=== PATIENT | male | born 1945 | race Caucasian/White ===

== ENCOUNTER → 2018-05-14 11:11 | Outpatient (CLI) | payer MEDICARE, SELFPAY ==
[2018-05-14 11:53] LABS: Add Manual Diff / Slide Review NO; Basophils Absolute Auto 0 /uL (0-100); Eosinophils Absolute Auto 100 /uL (0-450); Eosinophils Percent Auto 2.4 % (2-4); Hematocrit 42.2 % (41-53); Hemoglobin 14.2 g/dL (13.5-17.5); Lymphocytes Absolute Auto 2000 /uL (1100-4500); Lymphocytes Percent Auto 40.5 % (25-40); Mean Corpuscular HGB Conc 33.6 % (30-36); Mean Corpuscular Volume 95.5 fL (80-100); Monocytes Absolute Auto 400 /uL (0-900); Monocytes Percent Auto 8.6 % (3-14); Neutrophils Absolute Auto 2300 /uL (1500-7000); Neutrophils Percent Auto 47.5 % (50-75); Platelet Count 226 X10^3/uL (150-400); Red Blood Cell Count 4.43 X10^6/uL (4.5-5.9); Red Cell Distribution Width 14.2 % (11.6-14.8); White Blood Cell Count 4.8 X10^3/uL (4.5-11.0)
[2018-05-14 12:16] LABS: Alanine Aminotransferase 38 IU/L (21-72); Albumin 4.1 g/dL (3.5-5.0); Albumin Globulin Ratio 1.5 (1.0-2.8); Alkaline Phosphatase 59 U/L (38-126); Aspartate Aminotransferase 46 IU/L (17-59); BUN Creatinine Ratio 14.4 (6-22); Bilirubin Total 1.1 mg/dL (0.2-1.3); Blood Urea Nitrogen 13 mg/dL (9-20); Calcium 9.4 mg/dL (8.4-10.2); Carbon Dioxide 31 mmol/L (22-32); Chloride 101 mmol/L (98-107); Cholesterol 202 mg/dL (140-199); Estimated Glomerular Filt Rate > 60.0 mL/min (>60); Globulin 2.7 g/dL (1.7-4.1); Glucose 121 mg/dL (80-110); HDL Cholesterol 103 mg/dL (40-60); HEMOLYSIS < 15 (0-50); LDL Cholesterol Calculated 72 mg/dL (<100); Potassium 4.4 mmol/L (3.4-5.1); Sodium 139 mmol/L (137-145); Total Protein 6.8 g/dL (6.3-8.2); Triglycerides 137 mg/dL (35-150)
== END ==
PROVIDERS: Family Provider Family Medicine; PCP Family Medicine; Visit Provider Family Medicine
DX: I10 Essential (primary) hypertension (principal)
CPT/HCPCS: 36415; 80053; 80061; 85025

== ENCOUNTER 2018-06-17 07:00 | Day surgery (SDC) | payer MEDICARE, SELFPAY ==
[2018-06-17 07:21] VITALS: BP 133/77; PULSE 49; RESP 16; TEMP 36.2; O2SAT 100; BMI 27.8
[2018-06-17] MEDS: PROPARACAINE 0.5% OPHTH SOL 2 DROPS EYE-OP (07:32)
[2018-06-17] MEDS: CATARACT EYE COMPOUND (10 DROPS/SYRINGE) 3 DROPS EYE-OP (07:38)
--- NOTE | 2018-06-17 08:12 | PM.PREOP ---
Pre-operative Note Interval Note History & Physical reviewed/Exam performed by Physician: No Changes to H&P: No
--- NOTE | 2018-06-17 08:12 | PM.OP.1 ---
Operative Date/Time/Diagnoses Pre-op diagnosis: Nuclear Cataract Left eye Post-op diagnosis: same Procedure & Clinicians Surgeon: Daljit Cuevas Anesthesia Type: MAC +/- and Sedation Operative Notes Procedure in detail: Patient brought to the operating suite. Tetracaine drops placed in the left eye. Marking instrument was used to daksha the vertical and horizontal meridians. Patient was prepped and draped in sterile manner. Wire lid speculum was placed in the eye. Betadine drops were placed on the eye. This was irrigated. Lidocaine jelly was placed on the eye. A paracentesis port was created with a side-port blade. 0.1 mL 1% preservative free lidocaine was injected into the anterior chamber. The anterior chamber was deepened with viscoelastic. 2.6 mm keratome was used to create a temporal clear corneal incision. Cystotome and Utrata forceps were used to create continuous tear capsulorrhexis. Balanced salt solution was used to hydro dissect the nucleus. The phacoemulsification handpiece was inserted and the nucleus was removed using the stop and chop technique. The irrigation aspiration handpiece was inserted and the remaining cortex was removed. Anterior chamber was deepened with viscoelastic. An Giron [id number] intraocular lens with a power of 17.5 was injected into the capsular bag. Irrigation aspiration handpiece was inserted and the remaining viscoelastic was removed. The lens was rotated to the 180 degree meridian. Incision was hydrated with balanced salt solution and found to be leak free with pressure with Weck-Consuelo sponges. 0.1 mL Vigamox injected anterior chamber. 0.3 mL Kenalog 10 mg was injected subconjunctivally. Lid speculum was removed. The patient left the operating room in excellent condition. Complications: none Condition: stable Disposition: same day surgery
[2018-06-17] MEDS: PHENYLEPHRINE/LIDOCAINE VIAL (OR) 0.2 ML EYE-OP (08:24)
[2018-06-17] MEDS: CHONDROIDTIN/SOD HYALURONATE 1.05 ML SYRINGE INTRAOCULA (08:25)
[2018-06-17] MEDS: MOXIFLOXACIN OPHTH DROPS 3 ML BOTTLE 2 DROPS INJ (08:25)
[2018-06-17] MEDS: TRIAMCINOLONE 50 MG/5 ML VIAL INJ (08:25)
[2018-06-17] MEDS: LIDOCAINE JELLY 2% 5 ML 1 APPLIC TOP (08:26)
[2018-06-17] MEDS: TETRACAINE 0.5% OPHTH DROPS 4 ML 2 DROPS EYE-OP (08:26)
[2018-06-17] MEDS: BALANCED SALT IRRIG SOLN NO.2 500 ML, EPINEPHrine 1 MG IRR (08:26)
[2018-06-17 08:35] VITALS: BP 105/76; PULSE 64; RESP 12; TEMP 36.2; O2SAT 98
== END 2018-06-17 09:00 | disposition home or self-care (01) ==
PROVIDERS: Family Provider Family Medicine; PCP Family Medicine; Visit Provider Ophthalmology
DX: H25.12 Age-related nuclear cataract, left eye (principal); I10 Essential (primary) hypertension
CPT/HCPCS: J0171; J2250; J3010; J3301; V2787

== ENCOUNTER 2018-07-01 06:28 | Day surgery (SDC) | payer MEDICARE, SELFPAY ==
[2018-07-01] MEDS: PROPARACAINE 0.5% OPHTH SOL 2 DROPS EYE-OP (07:11)
[2018-07-01] MEDS: CATARACT EYE COMPOUND (10 DROPS/SYRINGE) 3 DROPS EYE-OP ×3 (07:13→07:27)
[2018-07-01 07:17] VITALS: BP 137/74; PULSE 57; RESP 16; TEMP 36.4; O2SAT 97
[2018-07-01 07:22] VITALS: BMI 26.7
--- NOTE | 2018-07-01 07:44 | PM.PREOP ---
Pre-operative Note Interval Note History & Physical reviewed/Exam performed by Physician: No Changes to H&P: No
--- NOTE | 2018-07-01 07:45 | PM.OP.1 ---
Operative Date/Time/Diagnoses Pre-op diagnosis: Nuclear cataract right eye Procedure & Clinicians Procedure: Cataract Surgery Same procedure as scheduled: Yes Surgeon: Daljit Cuevas Anesthesia Type: MAC +/- and Sedation Operative Notes Procedure in detail: Patient brought to the operating suite. Tetracaine drops placed in the right eye. Patient was prepped and draped in sterile manner. Wire lid speculum was placed in the eye. Betadine drops were placed on the eye. This was irrigated. Lidocaine jelly was placed on the eye. A paracentesis port was created with a side-port blade. 0.1 mL 1% preservative free lidocaine was injected into the anterior chamber. The anterior chamber was deepened with viscoelastic. 2.6 mm keratome was used to create a temporal clear corneal incision. Cystotome and Utrata forceps were used to create continuous tear capsulorrhexis. Balanced salt solution was used to hydro dissect the nucleus. The phacoemulsification handpiece was inserted and the nucleus was removed using the stop and chop technique. The irrigation aspiration handpiece was inserted and the remaining cortex was removed. Anterior chamber was deepened with viscoelastic. An Giron ZCB00 intraocular lens with a power of 20.0 was injected into the capsular bag. Irrigation aspiration handpiece was inserted and the remaining viscoelastic was removed. Incision was hydrated with balanced salt solution and found to be leak free with pressure with Weck-Consuelo sponges. 0.1 mL Vigamox injected anterior chamber. 0.3 mL Kenalog 10 mg was injected subconjunctivally. Lid speculum was removed. The patient left the operating room in excellent condition. Complications: none Condition: stable Disposition: same day surgery
--- NOTE | 2018-07-01 07:50 | SUR.OPER ---
Supine on eye stretcher, head on extension cradle secured with tape. Arms tucked at sides with blanket. Pillow under knees.
[2018-07-01] MEDS: CHONDROIDTIN/SOD HYALURONATE 1.05 ML SYRINGE INTRAOCULA (07:56)
[2018-07-01] MEDS: LIDOCAINE JELLY 2% 5 ML 1 APPLIC TOP (07:56)
[2018-07-01] MEDS: TETRACAINE 0.5% OPHTH DROPS 4 ML 2 DROPS EYE-OP (07:57)
[2018-07-01] MEDS: PHENYLEPHRINE/LIDOCAINE VIAL (OR) 0.2 ML EYE-OP (07:57)
[2018-07-01] MEDS: MOXIFLOXACIN OPHTH DROPS 3 ML BOTTLE 2 DROPS INJ (07:57)
[2018-07-01] MEDS: TRIAMCINOLONE 50 MG/5 ML VIAL INJ (07:58)
[2018-07-01] MEDS: BALANCED SALT IRRIG SOLN NO.2 500 ML, EPINEPHrine 1 MG IRR (07:58)
[2018-07-01 08:27] VITALS: BP 124/75; PULSE 53; RESP 16; TEMP 36.3; O2SAT 96
== END 2018-07-01 08:27 ==
LOC: OR 06:29
PROVIDERS: Family Provider Family Medicine; PCP Family Medicine; Visit Provider Ophthalmology
DX: H25.11 Age-related nuclear cataract, right eye (principal); I10 Essential (primary) hypertension
CPT/HCPCS: J0171; J2250; J3010; J3301

== ENCOUNTER 2019-05-12 16:45 | Outpatient (RCR) | payer MEDICARE, SELFPAY ==
--- NOTE | 2019-04-22 10:27 | PT-OP ANOTE ---
Appointment cancelled in setting of inclement weather
--- NOTE | 2019-04-27 16:07 | PT.OIE ---
Current Diagnoses Dizziness and giddiness (04/27/19) Past Medical History (Last Reviewed 12/12/17 @ 12:01 by Joe Holland MD) Benign prostatic hyperplasia with nocturia (06/11/17) BPH (benign prostatic hyperplasia) (Chronic) Chickenpox (Resolved) Cyst (Resolved 2012) Elevated PSA (Chronic) Erectile dysfunction (05/05/15) Essential hypertension (05/05/15) Hyperlipemia (Chronic) Hypertension (Chronic) Measles (Resolved) Mixed hyperlipidemia (05/05/15) Mumps (Resolved) Onychomycosis (05/21/16) Pneumonia (Resolved ~1979) Right shoulder pain (05/21/16) Past Surgical History (Last Reviewed 12/12/17 @ 12:01 by Joe Holland MD) Hx of skin graft (Resolved 1994) Hx of surgical procedure (Resolved 08/2016) Visit Care Team Role Provider Type Joe Holland MD Primary Care Provider Non-Staff Specialty: Family Practice Address: [address] [place] [address], [facility] [address], [place], [address] Email: Marcelo Jerry MD Attending Provider Physician Specialty: Ear, Nose, Throat Address: [address] [place] [address], [id number] Email: Physical Therapy Initial Evaluation PT-OP-A Visit Information Start: 04/22/19 07:21 Freq: Status: Active Protocol: Document 04/27/19 10:32 MB (Rec: 04/27/19 11:14 MB [id number]) Out-Patient Physical Therapy Visit Information Visit Information Visit Type Initial Evaluation Visit Note Medicare, unlimited Visit Start Time 10:32 Visit Stop Time 11:12 Total Visit Minutes 40 Visit Number 1/unlimited PT-OP-B Current Condition Start: 04/22/19 07:21 Freq: Status: Active Protocol: Document 04/27/19 10:32 MB (Rec: 04/27/19 11:14 MB [id number]) Current Condition History of Current Condition Onset Date 5 years History of Current Condition Pt reports balance issues for 5 years. He relies heavily on his vision. He had trouble with the snow because everything was white and he had trouble referencing where he was in space. He has trouble walking in the pathway in the garden. He had a fall in [place] 2 years ago when walking on [address]. He had a fall in [place] about a year ago when outside [employer]. He hit his left judaism area. He fell in [place] and he injured his left shoulder. He had PT and it is better. He goes for walks and uses walking sticks. He does not use a cane. He has 2-3 steps to enter the house and he can grab onto the side of the house. The house is one level. He does take care of a relative who lives on the second floor and he can use a rail. He is not having trouble driving. He can get dizzy with getting up but no dizziness rolling over in the bed. Pt denies: sinus issues, allergies, tinnitus, hearing changes. He has occ neck pain, worse in the cold weather. He denies visual changes, whiplash, trouble swallowing, recent chiropractor work on neck, performance of sit-ups, TMJ trouble, postures such as resting head on hand. He is unsure about B12 issues. His feet are sore sometimes. No real pain. Pt has no history of DM or neuropathjy. He takes BP medications, a statin. Treatment Goals Patient/Caregiver Goals To avoid falling. PT-OP-C Subjective Start: 04/22/19 07:21 Freq: Status: Active Protocol: Document 04/27/19 10:32 MB (Rec: 04/27/19 16:07 [id number]) OP-PT Subjective Patient Comments Patient Comments See history of current condition Patient Reported Progress Same Patient Questionnaires ABC- Activity Specific Balance Confidence Scale ABC Functional Impairment 1 to <20% Impaired (Score 81- 99) Dizziness Handicap Inventory DHI Functional Impairment 20 to 39% Impaired (Score 20- 39) PT-OP-D Balance Start: 04/22/19 07:21 Freq: Status: Active Protocol: Document 04/27/19 10:32 MB (Rec: 04/27/19 16:07 MB [id number]) OP-PT Balance Assessment Sitting Balance Static Sitting Balance Ability Normal Dynamic Sitting Balance Ability Normal Standing Balance Static Standing Balance Ability Normal Dynamic Standing Balance Ability Good Roe Fall Scale Copyright Permission PT-OP-M Strength Start: 04/22/19 07:21 Freq: Status: Active Protocol: Document 04/27/19 10:32 MB (Rec: 04/27/19 16:07 MB [id number]) Hip Strength Hip Manual Muscle Testing Left Flexion (L2) 4 Good Abduction 4 Good Adduction 4 Good Right Flexion (L2) 4 Good Abduction 4 Good Adduction 4 Good Knee Strength Knee Manual Muscle Testing Left Flexion (S2) 5 Normal Extension (L3) 5 Normal Right Flexion (S2) 5 Normal Extension (L3) 5 Normal Ankle/Foot Strength Ankle and Foot Manual Muscle Testing Left Dorsiflexion (L4) 5 Normal Comments Great toe extension 5/5 Right Dorsiflexion (L4) 5 Normal Comments Great toe extension 5/5 PT-OP-O Vestibular Start: 04/22/19 07:21 Freq: Status: Active Protocol: Document 04/27/19 10:32 MB (Rec: 04/27/19 16:07 MB [id number]) Vestibular Assessment Visual Testing Smooth Pursuits Horizontal Normal Smooth Pursuits Vertical Normal Gaze Evoked Nystagmus With Fixation Negative Gaze Evoked Nystagmus Without Fixation Negative PT-OP-T Assessment and Plan Start: 04/22/19 07:21 Freq: Status: Active Protocol: Document 04/27/19 10:32 MB (Rec: 04/27/19 16:07 MB [id number]) Physical Therapy Assessment Rehab Potential Rehabilitation Potential Good Evaluation Complexity Number of Personal Factors/Comorbidities 1-2 Number of Body Systems Impaired 1-2 Clinical Presentation at Evaluation Stable Impairments Impairments Balance,Gait,Posture,Strength, Vestibular Other Impairments Pt has trouble with turning activities including pivot turn and turning head to the left with gait. He has personal factors of advanced age, pt taking statin and pt leaving for vacation during PT course. Goals 5 Improvement Engineer Goal (LTG) Pt will perform progressive HEP with I including balance and strengthening exercises to decrease fall risk by 06/26/19 . LTG Duration 8 weeks 4 Mcfp Goal (LTG) Pt will deny fall for two months by 06/26/19. LTG Duration 8 weeks 3 Improvement Engineer Goal (LTG) Pt will present with B hip flexion and abduction MMT to 5 /5 to improve functional strength with sit to stands by 06/26/19. LTG Duration 8 weeks 2 Impairment FGA score Mcfp Goal (LTG) Pt will present with FGA score to at least 26/30 to decrease fall risk by 06/26/19. LTG Duration 8 weeks 1 Improvement Engineer Goal (LTG) Pt will perform 15 reps sit to stand without UE support in 30 sec to improve functional mobility by 06/26/2019. LTG Duration 8 weeks Assessment Summary Assessment Pt is a 74 y/o male presenting with history of falls and reports of imbalance and goal decreasing fall risk. He denies dizziness with rolling in the bed. His BP does not drop with orthostatic testing today and is 115/70 in supine, 130/75 in standing and increases to 130/78 after standing 1 minute. He presents with B hip flexor and abductor weakness, loss of balance and reports of fear when his vision is blocked, LOB with head turns, gait with narrow ARNIE and pivot turn this date. He will benefit from PT to improve LE strength , balance and gait to decrease fall risk. Pt may leave for vacation during PT course and this may delay meeting goals. Physical Therapy Plan Frequency and Duration Frequency of Treatment 2x/Week Duration of Treatment 8 weeks Plan of Care Start Date 04/27/19 Plan of Care End Date 06/26/19 Therapeutic Interventions Therapeutic Interventions Balance Training,Canalithic Repositioning,Gait Training, Home Exercise Program,Manual Therapy,Neuromuscular Re- education,Orthotic/Prosthetic Management,Patient/Caregiver Education,Self-Care/Home Management,Therapeutic Activities,Therapeutic Exercises,Vestibular Rehabilitation Next Visit Focus/Plan Next Note Type Treatment Note Next Visit Plan Initiate balance exercises and consider initiating VOR exercises
--- NOTE | 2019-04-27 16:07 | PT.OPPOC ---
Physical, Occupational & Speech Therapy At [facility] Current Diagnoses Dizziness and giddiness (04/27/19) Visit Care Team Role Provider Type Joe Holland MD Primary Care Provider Non-Staff Specialty: Family Practice Address: [address], [address], [place], [address] Email: Marcelo Jerry MD Attending Provider Physician Specialty: Ear, Nose, Throat Address: [address] [place] [address], [id number] Email: [email or web address] Plan Of Care PT-OP-T Assessment and Plan Start: 04/22/19 07:21 Freq: Status: Active Protocol: Document 04/27/19 10:32 MB (Rec: 04/27/19 16:07 MB [id number]) Physical Therapy Assessment Rehab Potential Rehabilitation Potential Good Evaluation Complexity Number of Personal Factors/Comorbidities 1-2 Number of Body Systems Impaired 1-2 Clinical Presentation at Evaluation Stable Impairments Impairments Balance,Gait,Posture,Strength, Vestibular Other Impairments Pt has trouble with turning activities including pivot turn and turning head to the left with gait. He has personal factors of advanced age, pt taking statin and pt leaving for vacation during PT course. Goals 5 Alf Goal (LTG) Pt will perform progressive HEP with I including balance and strengthening exercises to decrease fall risk by 06/26/19 . LTG Duration 8 weeks 4 Knock Out Hand Goal (LTG) Pt will deny fall for two months by 06/26/19. LTG Duration 8 weeks 3 Alf Goal (LTG) Pt will present with B hip flexion and abduction MMT to 5 /5 to improve functional strength with sit to stands by 06/26/19. LTG Duration 8 weeks 2 Impairment FGA score 20/30 Alf Goal (LTG) Pt will present with FGA score to at least 26/30 to decrease fall risk by 06/26/19. LTG Duration 8 weeks 1 Alf Goal (LTG) Pt will perform 15 reps sit to stand without UE support in 30 sec to improve functional mobility by 06/26/2019. LTG Duration 8 weeks Assessment Summary Assessment Pt is a 74 y/o male presenting with history of falls and reports of imbalance and goal decreasing fall risk. He denies dizziness with rolling in the bed. His BP does not drop with orthostatic testing today and is 115/70 in supine, 130/75 in standing and increases to 130/78 after standing 1 minute. He presents with B hip flexor and abductor weakness, loss of balance and reports of fear when his vision is blocked, LOB with head turns, gait with narrow ARNIE and pivot turn this date. He will benefit from PT to improve LE strength , balance and gait to decrease fall risk. Pt may leave for vacation during PT course and this may delay meeting goals. Physical Therapy Plan Frequency and Duration Frequency of Treatment 2x/Week Duration of Treatment 8 weeks Plan of Care Start Date 04/27/19 Plan of Care End Date 06/26/19 Therapeutic Interventions Therapeutic Interventions Balance Training,Canalithic Repositioning,Gait Training, Home Exercise Program,Manual Therapy,Neuromuscular Re- education,Orthotic/Prosthetic Management,Patient/Caregiver Education,Self-Care/Home Management,Therapeutic Activities,Therapeutic Exercises,Vestibular Rehabilitation Next Visit Focus/Plan Next Note Type Treatment Note Next Visit Plan Initiate balance exercises and consider initiating VOR exercises Plan of Care Dates Plan of Care Start Date 04/27/19 Plan of Care End Date 06/26/19 Electronically Signed by: Bela Bowie, PT 04/27/19 [id number] Please Sign and Return: I have reviewed this Plan of Care and certify that the skilled therapy services above are required to meet the patient?s needs. Physician Signature Date Printed Name and Credentials Clinical Instructor Signature Printed Name and Credentials
--- NOTE | 2019-04-29 15:29 | PT.OTN ---
Current Diagnoses Dizziness and giddiness (04/29/19) Physical Therapy Treatment Note PT-OP-A Visit Information Start: 04/22/19 07:21 Freq: Status: Active Protocol: Document 04/29/19 14:28 MB (Rec: 04/29/19 15:26 MB [id number]) Out-Patient Physical Therapy Visit Information Visit Information Visit Type Treatment Note Visit Note Medicare, unlimited Visit Start Time 14:28 Visit Stop Time 15:08 Total Visit Minutes 40 Visit Number 2/unlimited PT-OP-B Current Condition Start: 04/22/19 07:21 Freq: Status: Active Protocol: Document 04/27/19 10:32 MB (Rec: 04/27/19 11:14 MB [id number]) Current Condition History of Current Condition Onset Date 5 years History of Current Condition Pt reports balance issues for 5 years. He relies heavily on his vision. He had trouble with the snow because everything was white and he had trouble referencing where he was in space. He has trouble walking in the pathway in the garden. He had a fall in [place] 2 years ago when walking on [address]. He had a fall in [place] about a year ago when outside [employer]. He hit his left anabaptist area. He fell in [place] and he injured his left shoulder. He had PT and it is better. He goes for walks and uses walking sticks. He does not use a cane. He has 2-3 steps to enter the house and he can grab onto the side of the house. The house is one level. He does take care of a relative who lives on the second floor and he can use a rail. He is not having trouble driving. He can get dizzy with getting up but no dizziness rolling over in the bed. Pt denies: sinus issues, allergies, tinnitus, hearing changes. He has occ neck pain, worse in the cold weather. He denies visual changes, whiplash, trouble swallowing, recent chiropractor work on neck, performance of sit-ups, TMJ trouble, postures such as resting head on hand. He is unsure about B12 issues. His feet are sore sometimes. No real pain. Pt has no history of DM or neuropathjy. He takes BP medications, a statin. Treatment Goals Patient/Caregiver Goals To avoid falling. PT-OP-C Subjective Start: 04/22/19 07:21 Freq: Status: Active Protocol: Document 04/29/19 14:28 MB (Rec: 04/29/19 15:28 MB [id number]) OP-PT Subjective Patient Comments Patient Comments Pt is ready for exercises. PT-OP-D Balance Start: 04/22/19 07:21 Freq: Status: Active Protocol: Document 04/27/19 10:32 MB (Rec: 04/27/19 16:07 MB [id number]) OP-PT Balance Assessment Sitting Balance Static Sitting Balance Ability Normal Dynamic Sitting Balance Ability Normal Standing Balance Static Standing Balance Ability Normal Dynamic Standing Balance Ability Good Roe Fall Scale Copyright Permission PT-OP-M Strength Start: 04/22/19 07:21 Freq: Status: Active Protocol: Document 04/27/19 10:32 MB (Rec: 04/27/19 16:07 MB [id number]) Hip Strength Hip Manual Muscle Testing Left Flexion (L2) 4 Good Abduction 4 Good Adduction 4 Good Right Flexion (L2) 4 Good Abduction 4 Good Adduction 4 Good Knee Strength Knee Manual Muscle Testing Left Flexion (S2) 5 Normal Extension (L3) 5 Normal Right Flexion (S2) 5 Normal Extension (L3) 5 Normal Ankle/Foot Strength Ankle and Foot Manual Muscle Testing Left Dorsiflexion (L4) 5 Normal Comments Great toe extension 5/5 Right Dorsiflexion (L4) 5 Normal Comments Great toe extension 5/5 PT-OP-O Vestibular Start: 04/22/19 07:21 Freq: Status: Active Protocol: Document 04/27/19 10:32 MB (Rec: 04/27/19 16:07 MB [id number]) Vestibular Assessment Visual Testing Smooth Pursuits Horizontal Normal Smooth Pursuits Vertical Normal Gaze Evoked Nystagmus With Fixation Negative Gaze Evoked Nystagmus Without Fixation Negative PT-OP-Q Treatments Start: 04/22/19 07:21 Freq: Status: Active Protocol: Document 04/29/19 14:28 MB (Rec: 04/29/19 15:26 MB [id number]) Therapeutic Exercises Sitting Exercises Sit to stands without UE support Comments 12 reps in 30 sec today, added to HEP Standing Exercises Romberg with EO and EC in corner Comments 30 sec and pt with LOB with EC and ed to open eyes before LOB Thoracic rotation with arms sway and cervical rotation with feet shoulder width apart Reps/Minutes 5 reps Comments Pt performs and added to HEP DVA with horizontal and vertical head turns Comments Pt states that it is not hard and so not added to HEP Neuro Re-Education Treatment Vestibular Rehabilitation DVA testing in sitting and standing Comments DVA testing and pt does not have change in line reading with horizontal or vertical head turns but he does resist PT moving head. PT-OP-T Assessment and Plan Start: 04/22/19 07:21 Freq: Status: Active Protocol: Document 04/29/19 14:28 MB (Rec: 04/29/19 15:26 MB [id number]) Physical Therapy Assessment Rehab Potential Rehabilitation Potential Good Evaluation Complexity Number of Personal Factors/Comorbidities 1-2 Number of Body Systems Impaired 1-2 Clinical Presentation at Evaluation Stable Impairments Impairments Balance,Gait,Posture,Strength, Vestibular Other Impairments Pt has trouble with turning activities including pivot turn and turning head to the left with gait. He has personal factors of advanced age, pt taking statin and pt leaving for vacation during PT course. Goals 5 Group Home Goal (LTG) Pt will perform progressive HEP with I including balance and strengthening exercises to decrease fall risk by 06/26/19 . LTG Duration 8 weeks 4 Group Home Goal (LTG) Pt will deny fall for two months by 06/26/19. LTG Duration 8 weeks 3 Box Stacker Goal (LTG) Pt will present with B hip flexion and abduction MMT to 5 /5 to improve functional strength with sit to stands by 06/26/19. LTG Duration 8 weeks 2 Impairment FGA score 20/30 Group Home Goal (LTG) Pt will present with FGA score to at least 26/30 to decrease fall risk by 06/26/19. LTG Duration 8 weeks 1 Group Home Goal (LTG) Pt will perform 15 reps sit to stand without UE support in 30 sec to improve functional mobility by 06/26/2019. LTG Duration 8 weeks Assessment Summary Assessment Initiated HEP this date today. Con't progression. Physical Therapy Plan Frequency and Duration Frequency of Treatment 2x/Week Duration of Treatment 8 weeks Plan of Care Start Date 04/27/19 Plan of Care End Date 06/26/19 Therapeutic Interventions Therapeutic Interventions Balance Training,Canalithic Repositioning,Gait Training, Home Exercise Program,Manual Therapy,Neuromuscular Re- education,Orthotic/Prosthetic Management,Patient/Caregiver Education,Self-Care/Home Management,Therapeutic Activities,Therapeutic Exercises,Vestibular Rehabilitation Next Visit Focus/Plan Next Note Type Treatment Note Next Visit Plan Progress hip abduction and extension strengthening and balance exercises
--- NOTE | 2019-05-04 15:49 | PT.OTN ---
Current Diagnoses Dizziness and giddiness (05/04/19) Physical Therapy Treatment Note PT-OP-A Visit Information Start: 04/22/19 07:21 Freq: Status: Active Protocol: Document 05/04/19 13:16 SP (Rec: 05/04/19 15:47 SP [id number]) Out-Patient Physical Therapy Visit Information Visit Information Visit Type Treatment Note Visit Note Medicare, unlimited 13 min late for appointment Visit Start Time 13:13 Visit Stop Time 13:50 Total Visit Minutes 37 Visit Number 3/unlimited Number of APPLICATION SECURITY SPECIALIST Visits 1 PT-OP-B Current Condition Start: 04/22/19 07:21 Freq: Status: Active Protocol: Document 04/27/19 10:32 MB (Rec: 04/27/19 11:14 MB [id number]) Current Condition History of Current Condition Onset Date 5 years History of Current Condition Pt reports balance issues for 5 years. He relies heavily on his vision. He had trouble with the snow because everything was white and he had trouble referencing where he was in space. He has trouble walking in the pathway in the garden. He had a fall in [place] 2 years ago when walking on [address]. He had a fall in [place] about a year ago when outside [employer]. He hit his left [employer] area. He fell in [place] and he injured his left shoulder. He had PT and it is better. He goes for walks and uses walking sticks. He does not use a cane. He has 2-3 steps to enter the house and he can grab onto the side of the house. The house is one level. He does take care of a relative who lives on the second floor and he can use a rail. He is not having trouble driving. He can get dizzy with getting up but no dizziness rolling over in the bed. Pt denies: sinus issues, allergies, tinnitus, hearing changes. He has occ neck pain, worse in the cold weather. He denies visual changes, whiplash, trouble swallowing, recent chiropractor work on neck, performance of sit-ups, TMJ trouble, postures such as resting head on hand. He is unsure about B12 issues. His feet are sore sometimes. No real pain. Pt has no history of DM or neuropathjy. He takes BP medications, a statin. Treatment Goals Patient/Caregiver Goals To avoid falling. PT-OP-C Subjective Start: 04/22/19 07:21 Freq: Status: Active Protocol: Document 05/04/19 13:13 SP (Rec: 05/04/19 15:49 SP [id number]) OP-PT Subjective Patient Comments Patient Comments Pt reported compliant with HEP , challenged by standign balance exercise but is ableto do. Denied dizziness pre PT and during ther ex. PT-OP-D Balance Start: 04/22/19 07:21 Freq: Status: Active Protocol: Document 04/27/19 10:32 MB (Rec: 04/27/19 16:07 MB [id number]) OP-PT Balance Assessment Sitting Balance Static Sitting Balance Ability Normal Dynamic Sitting Balance Ability Normal Standing Balance Static Standing Balance Ability Normal Dynamic Standing Balance Ability Good Roe Fall Scale Copyright Permission PT-OP-M Strength Start: 04/22/19 07:21 Freq: Status: Active Protocol: Document 04/27/19 10:32 MB (Rec: 04/27/19 16:07 MB [id number]) Hip Strength Hip Manual Muscle Testing Left Flexion (L2) 4 Good Abduction 4 Good Adduction 4 Good Right Flexion (L2) 4 Good Abduction 4 Good Adduction 4 Good Knee Strength Knee Manual Muscle Testing Left Flexion (S2) 5 Normal Extension (L3) 5 Normal Right Flexion (S2) 5 Normal Extension (L3) 5 Normal Ankle/Foot Strength Ankle and Foot Manual Muscle Testing Left Dorsiflexion (L4) 5 Normal Comments Great toe extension 5/5 Right Dorsiflexion (L4) 5 Normal Comments Great toe extension 5/5 PT-OP-O Vestibular Start: 04/22/19 07:21 Freq: Status: Active Protocol: Document 04/27/19 10:32 MB (Rec: 04/27/19 16:07 MB [id number]) Vestibular Assessment Visual Testing Smooth Pursuits Horizontal Normal Smooth Pursuits Vertical Normal Gaze Evoked Nystagmus With Fixation Negative Gaze Evoked Nystagmus Without Fixation Negative PT-OP-Q Treatments Start: 04/22/19 07:21 Freq: Status: Active Protocol: Document 05/04/19 13:16 SP (Rec: 05/04/19 15:47 SP [id number]) Therapeutic Exercises Supine Exercises post pelvic tilt Reps/Minutes 2x5 Comments cued awareness of PPT and breathing Trans ab heel slide Reps/Minutes x5 B trans ab Reps/Minutes 10 x10 Sitting Exercises pelvic tilits Reps/Minutes x10 Comments cued stationary upper body Sit to stands without UE support Reps/Minutes 12 in 30 sec x 2 Comments with arms crossed for weightshift Standing Exercises Tandem Equipment Used chair Reps/Minutes 15 x2 each foot position Comments cued wt btwn B feet, glut activation, chest lift Romberg with EO and EC in corner Comments 30 sec and pt with LOB with EC and ed to open eyes before LOB Thoracic rotation with arms sway and cervical rotation with feet shoulder width apart Reps/Minutes 10 reps Comments Pt performs and added to HEP DVA with horizontal and vertical head turns Standing Exercise Name Performed Reps/Minutes 30x2 Comments Pt states that it is not hard and so not added to HEP PT-OP-T Assessment and Plan Start: 04/22/19 07:21 Freq: Status: Active Protocol: Document 05/04/19 13:16 SP (Rec: 05/04/19 15:47 SP [id number]) Physical Therapy Assessment Goals 5 Sheeter Machine Operator Goal (LTG) Pt will perform progressive HEP with I including balance and strengthening exercises to decrease fall risk by 06/26/19 . LTG Duration 8 weeks 4 Sheeter Machine Operator Goal (LTG) Pt will deny fall for two months by 06/26/19. LTG Duration 8 weeks 3 Assisted Goal (LTG) Pt will present with B hip flexion and abduction MMT to 5 /5 to improve functional strength with sit to stands by 06/26/19. LTG Duration 8 weeks 2 Impairment FGA score 20/30 Sheeter Machine Operator Goal (LTG) Pt will present with FGA score to at least 26/30 to decrease fall risk by 06/26/19. LTG Duration 8 weeks 1 Sheeter Machine Operator Goal (LTG) Pt will perform 15 reps sit to stand without UE support in 30 sec to improve functional mobility by 06/26/2019. LTG Duration 8 weeks Assessment Summary Assessment Tx focused on HEP review, still feels challenged tandem today but able to perform 1 hand contact chair post cues ofweight distribution BLE ARNIE over COG, glut activation and upright posture continue work on this in PT, not safe for home. Added Trans ab training and pelvc tilts ROM with requirement cuing for trans ab engagement, weak PPT core facilitation without glut and heel press recruitment, improved post verbal and lower posterior ribcage contact cues in supine and sitting, added as HEP. Physical Therapy Plan Frequency and Duration Frequency of Treatment 2x/Week Duration of Treatment 8 weeks Plan of Care Start Date 04/27/19 Plan of Care End Date 06/26/19 Therapeutic Interventions Therapeutic Interventions Balance Training,Canalithic Repositioning,Gait Training, Home Exercise Program,Manual Therapy,Neuromuscular Re- education,Orthotic/Prosthetic Management,Patient/Caregiver Education,Self-Care/Home Management,Therapeutic Activities,Therapeutic Exercises,Vestibular Rehabilitation Next Visit Focus/Plan Next Note Type Treatment Note Next Visit Plan Assess added Tras ab with heel slide, and pelvic tilts to work toward improved balance. Progress hip abduction and extension strengthening and balance exercises
--- NOTE | 2019-05-12 17:17 | PT.OTN ---
Current Diagnoses Dizziness and giddiness (05/12/19) Physical Therapy Treatment Note PT-OP-A Visit Information Start: 04/22/19 07:21 Freq: Status: Active Protocol: Document 05/12/19 16:47 MB (Rec: 05/12/19 17:16 MB [id number]) Out-Patient Physical Therapy Visit Information Visit Information Visit Type Treatment Note Visit Note Medicare, unlimited Visit Start Time 16:47 Visit Stop Time 17:12 Total Visit Minutes 25 Visit Number 4/unlimited Number of PHARMACOLOGY TEACHER Visits 1 PT-OP-B Current Condition Start: 04/22/19 07:21 Freq: Status: Active Protocol: Document 04/27/19 10:32 MB (Rec: 04/27/19 11:14 MB [id number]) Current Condition History of Current Condition Onset Date 5 years History of Current Condition Pt reports balance issues for 5 years. He relies heavily on his vision. He had trouble with the snow because everything was white and he had trouble referencing where he was in space. He has trouble walking in the pathway in the garden. He had a fall in [place] [place] [employer] 2 years ago when walking on [address]. He had a fall in [place] about a year ago when outside [employer]. He hit his left church area. He fell in [place] and he injured his left shoulder. He had PT and it is better. He goes for walks and uses walking sticks. He does not use a cane. He has 2-3 steps to enter the house and he can grab onto the side of the house. The house is one level. He does take care of a relative who lives on the second floor and he can use a rail. He is not having trouble driving. He can get dizzy with getting up but no dizziness rolling over in the bed. Pt denies: sinus issues, allergies, tinnitus, hearing changes. He has occ neck pain, worse in the cold weather. He denies visual changes, whiplash, trouble swallowing, recent chiropractor work on neck, performance of sit-ups, TMJ trouble, postures such as resting head on hand. He is unsure about B12 issues. His feet are sore sometimes. No real pain. Pt has no history of DM or neuropathjy. He takes BP medications, a statin. Treatment Goals Patient/Caregiver Goals To avoid falling. PT-OP-C Subjective Start: 04/22/19 07:21 Freq: Status: Active Protocol: Document 05/12/19 16:47 MB (Rec: 05/12/19 17:16 MB [id number]) OP-PT Subjective Patient Comments Patient Comments Pt had a catheterization procedure last week and then got an infection and high fever and that is why he missed PT. He is doing better now. He states that his fever is reducing. He leaves for the [facility] next week and then has stent procedure for prostate in June. He is wondering about doing as much PT at home as he can. PT-OP-D Balance Start: 04/22/19 07:21 Freq: Status: Active Protocol: Document 04/27/19 10:32 MB (Rec: 04/27/19 16:07 MB [id number]) OP-PT Balance Assessment Sitting Balance Static Sitting Balance Ability Normal Dynamic Sitting Balance Ability Normal Standing Balance Static Standing Balance Ability Normal Dynamic Standing Balance Ability Good Roe Fall Scale Copyright Permission PT-OP-M Strength Start: 04/22/19 07:21 Freq: Status: Active Protocol: Document 04/27/19 10:32 MB (Rec: 04/27/19 16:07 MB [id number]) Hip Strength Hip Manual Muscle Testing Left Flexion (L2) 4 Good Abduction 4 Good Adduction 4 Good Right Flexion (L2) 4 Good Abduction 4 Good Adduction 4 Good Knee Strength Knee Manual Muscle Testing Left Flexion (S2) 5 Normal Extension (L3) 5 Normal Right Flexion (S2) 5 Normal Extension (L3) 5 Normal Ankle/Foot Strength Ankle and Foot Manual Muscle Testing Left Dorsiflexion (L4) 5 Normal Comments Great toe extension 5/5 Right Dorsiflexion (L4) 5 Normal Comments Great toe extension 5/5 PT-OP-O Vestibular Start: 04/22/19 07:21 Freq: Status: Active Protocol: Document 04/27/19 10:32 MB (Rec: 04/27/19 16:07 MB [id number]) Vestibular Assessment Visual Testing Smooth Pursuits Horizontal Normal Smooth Pursuits Vertical Normal Gaze Evoked Nystagmus With Fixation Negative Gaze Evoked Nystagmus Without Fixation Negative PT-OP-Q Treatments Start: 04/22/19 07:21 Freq: Status: Active Protocol: Document 05/12/19 16:47 MB (Rec: 05/12/19 17:16 MB [id number]) Therapeutic Exercises Supine Exercises post pelvic tilt Comments 5 reps, cued to flatten spine Trans ab heel slide Comments As above trans ab Comments 5 reps, pt has trouble with this exercise Sitting Exercises pelvic tilits Reps/Minutes x10 Comments Cued not to move thorax, but to tip pelvis and flatten spine Standing Exercises Tandem Comments Pt verbalizes understanding when reviewed on handout Romberg with EO and EC in corner Comments Pt verbalizes understanding when reviewed on handout Thoracic rotation with arms sway and cervical rotation with feet shoulder width apart Comments Pt verbalizes understanding when reviewed on handout PT-OP-T Assessment and Plan Start: 04/22/19 07:21 Freq: Status: Active Protocol: Document 05/12/19 16:47 MB (Rec: 05/12/19 17:16 MB [id number]) Physical Therapy Assessment Assessment Summary Assessment Reviewed all of pt's exercises . He has most trouble with pelvic tilt in sitting. Pt states that he is getting over infection from urethral catheterization, is leaving for the [facility] for 2 weeks and then has a prostate stent placement upon return from trip. He wonders about stopping PT at this time and starting again upon return and after stent. PT is in agreement and will d/c PT. Physical Therapy Plan Discharge Physical Therapy Discharge Reasons Patient Request
== END 2019-05-13 09:01 | disposition home health service (06) ==
LOC: PHYS 16:45
PROVIDERS: PCP Family Medicine; Visit Provider Otolaryngology
DX: R42 Dizziness and giddiness (principal)
CPT/HCPCS: 97110; 97112; 97161

== ENCOUNTER 2019-06-18 04:02 | Emergency (ER) | payer MEDICARE, SELFPAY ==
--- NOTE | 2019-06-18 04:05 | ED.MALEGU ---
HPI - Male Genitourinary General Chief complaint: Urogenital-Male Stated complaint: urethra blocked/cant pee Time Seen by Provider: 06/18/19 04:05 Source: patient and family () Mode of arrival: Ambulatory Limitations: no limitations History of Present Illness HPI Narrative: This is a 74-year-old male comes in with complaint of urinary retention. Patient states that he had a bladder lift about a week ago with his urologist in telling him. He does not recall his urologists name. Patient states since then he has been having some hematuria intermittently. The 1st day or so he had difficulty with urination was told to self catheterize. He did twice and then ran out of supplies but he had been able to urinate without much issue throughout the week. Tonight he thinks that his last urination was before midnight but he feels very full and cannot urinate. He has not had any fevers or chills. No chest pain or shortness of breath. He denies any abdominal pain. He denies any back or flank pain. Patient has had some blood on his underwear. He has had some clots intermittently when urinating. He does take an aspirin and did restart it. He also takes medication for hypertension, BPH and dyslipidemia. Besides his bladder surgery he denies any other recent surgeries. Related Data Home Medications Medication Instructions Recorded Confirmed ASPIRIN (Aspirin EC) 81 mg PO Q DAY #0 08/14/10 07/01/18 fluoride (sodium) 0.25 mg PO QDAY #0 07/02/16 07/01/18 Previous Rx's Medication Instructions Recorded tamsulosin [Flomax] 0.4 mg PO QDAY #90 cap 06/11/17 rosuvastatin 10 mg tablet 10 mg PO QDAY #90 tab 12/12/17 sildenafil (pulm.hypertension) 20 20 mg PO Q DAY PRN PRN #50 tab 12/12/17 mg tablet losartan 50 mg tablet 50 mg PO Q DAY #30 tab 08/12/18 Allergies Allergy/AdvReac Type Severity Reaction Status Date / Time No Known Drug Allergies Allergy Verified 07/01/18 07:15 Review of Systems Review of Systems ROS Unobtainable: All systems reviewed & are unremarkable except as noted in HPI and below Patient History Medical History Benign prostatic hyperplasia with nocturia (06/11/17) BPH (benign prostatic hyperplasia) (Chronic) Chickenpox (Resolved) Cyst (Resolved 2012) Elevated PSA (Chronic) Erectile dysfunction (05/05/15) Essential hypertension (05/05/15) Hyperlipemia (Chronic) Hypertension (Chronic) Measles (Resolved) Mixed hyperlipidemia (05/05/15) Mumps (Resolved) Onychomycosis (05/21/16) Pneumonia (Resolved ~1979) Right shoulder pain (05/21/16) Surgical History Hx of skin graft (Resolved 1994) Hx of surgical procedure (Resolved 08/2016) Social History household members: spouse Smoking Status: Never smoker alcohol intake: current (2 drinks per day) Smoking Status: Never smoker Exam Narrative Exam Narrative: GENERAL: Alert and oriented x three, obese, well-appearing male in moderate distress. HEENT: Head normocephalic, atraumatic, EOMI, pupils reactive, face symmetric, moist mucous membranes NECK: Supple, full range of motion CARDIOVASCULAR: Regular rate and rhythm without murmurs, rubs or gallops. RESPIRATORY: Breath sounds equal bilaterally, no wheezes rales or rhonchi. ABDOMEN: Soft, positive for suprapubic fullness and tenderness. Normoactive bowel sounds all 4 quadrants. No guarding or rebound, rigidity, no mass : No CVA tenderness. Male: normal external examination except for some blood on his underwear and the opening of the urethra,, no penile discharge or lesions, testicles non-tender, cremasteric reflex intact, no inguinal hernias noted. EXTREMITIES: Normal range of motion, no clubbing or edema. Neurovascularly intact NEUROLOGICAL: Cranial nerves II through XII grossly intact. Moving all extremities SKIN: Warm, dry, no petechiae, no rashes or lesions. Initial Vital Signs Initial Vital Signs: Vital Signs Temperature 95.5 F L 06/18/19 04:06 Pulse Rate 69 06/18/19 04:06 Respiratory Rate 20 06/18/19 04:06 Blood Pressure 176/82 H 06/18/19 04:06 Pulse Oximetry 98 06/18/19 04:06 Course Orders Ordered: ED Orders 06/18/19 04:15 Urinalysis and Microscopic Stat Urine Culture Stat Discontinued Medications Lidocaine HCl (Urojet) 5 ml TOP NOW ONE Stop: 06/18/19 04:13 Last Admin: 06/18/19 04:17 Dose: 5 ml Documented by: SAMINA Vital Signs Vital signs: Vital Signs - 8 hr 06/18/19 04:06 06/18/19 04:26 06/18/19 05:30 Temperature 95.5 F L Pulse Rate 69 60 67 Respiratory Rate 20 18 20 Blood Pressure 176/82 H 121/68 Blood Pressure [Right Arm] 136/70 Pulse Oximetry 98 100 97 MDM - Male Genitourinary Lab Data Labs: Lab Results 06/18/19 Range/Units 04:15 Urine Color Red Urine Appearance Turbid Urine pH 6.5 (4.5-8.0) Ur Specific [place] <=1.005 (1.000-1.035) Urine Protein 3+ H (Negative) Urine Glucose (UA) Negative (Negative) g/dL Urine Ketones Trace H (NEGATIVE) Urine Occult Blood 3+ H (Negative) Urine Nitrate Positive (Negative) Urine Bilirubin Negative (NEGATIVE) Urine Urobilinogen 0.2 (0.2) E.U./dL Ur Leukocyte Esterase Negative (NEGATIVE) Urine RBC 30-100/hpf H (0-5/HPF) Urine WBC 1-5/hpf (0-5/HPF) Urine Bacteria Many (>30) H (None) Ur Culture Indicated? Specimen cultured MDM Narrative Medical decision making narrative: Patient had a 700+ mL on bladder scan. Moore catheter was placed and patient immediately had out about 1 L of fluid. Urinalysis was sent. Shows bacteria but no other signs of infection, is positive for blood and urine is grossly bloody although no clots noted. Patient is feeling much better afterwards. Patient's bleeding is likely secondary to his aspirin use and recent treatment with his urologist. Plan to leave Moore catheter in place have him call his urologist this morning for follow-up. Patient continues to take Flomax daily. Return precautions were discussed. Patient's heart rate and blood pressure appropriate and additional lab work was not ordered at this time. Discharge Plan Departure Patient Disposition: Home Clinical Impression: Acute urinary retention, Hematuria Discharge Date/Time: 06/18/19 05:28 Instructions: How to Care for Your Moore Catheter -- Male, DI for Urinary Retention in Men Activity Restrictions/Additional Instructions: Follow-up with your urologist, call this morning for a follow-up appointment. Your urine was sent for culture, this takes about 48 hours to result, if positive you should expect a phone call to update you start you on antibiotics. Continue home medications as prescribed. You may wish to stop your aspirin until you see your urologist. Continue your flomax or tamsulosin daily. Return to the ER for fevers or chills, recurrent retention, if you your Moore catheter is not draining or other clots in the urine cannot drain, increasing abdominal, back or flank pain, nausea vomiting difficulty with bowel movements or other new or concerning symptoms Prescriptions: No Action sildenafil (pulm.hypertension) 20 mg tablet 20 mg PO Q DAY PRN PRN (Reason: sexual activity) Qty: 50 RF: 3 rosuvastatin [Crestor] 10 mg tablet 10 mg PO QDAY Qty: 90 RF: 3 ASPIRIN (Aspirin EC) 81 mg PO Q DAY Qty: 0 RF: 0 fluoride (sodium) 0.25 MG tablet,chewable 0.25 mg PO QDAY Qty: 0 RF: 0 tamsulosin [Flomax] 0.4 MG capsule,extended release 24hr 0.4 mg PO QDAY Qty: 90 RF: 3 losartan 50 mg tablet 50 mg PO Q DAY Qty: 30 RF: 0 Referrals: oJe Holland MD [Primary Care Provider] -
[2019-06-18 04:06] VITALS: BP 176/82; PULSE 69; RESP 20; TEMP 35.3; O2SAT 98
[2019-06-18] MEDS: LIDOCAINE 2% (UROJET) 5 ML GEL TOP (04:17)
[2019-06-18 04:26] VITALS: BP 136/70; PULSE 60; RESP 18; O2SAT 100
--- NOTE | 2019-06-18 04:29 | PC.NURSE ---
Pain significantly improved following insertion of catheter. Approx 1000ml urine in bag. Tubing clamped for a 10 minutes. Pt states feels so much better.
[2019-06-18 05:07] LABS: Appearance Urine UA TURBID; Bilirubin Urine UA NEGATIVE (NEGATIVE); Color Urine UA RED; Glucose Urine UA NEGATIVE (Negative); Ketones Urine UA TRACE (NEGATIVE); Leukocyte Esterase Urine UA NEGATIVE (NEGATIVE); Nitrite Urine UA POSITIVE (Negative); Occult Blood Urine UA 3+ (Negative); Protein Urine UA 3+ (Negative); Specific Gravity Urine UA <=1.005 (1.000-1.035); Urobilinogen Urine UA 0.2 E.U./dL (0.2); pH Urine UA 6.5 (4.5-8.0)
[2019-06-18 05:08] LABS: Bacteria Urine Many (>30); RBC Urine 30-100/HPF (0-5/HPF); WBC Urine 1-5/HPF (0-5/HPF)
[2019-06-18 05:09] LABS: Culture Indicated Urine Specimen Cultured
--- NOTE | 2019-06-18 05:29 | PC.NURSE ---
Sarah emptied urine bag. Total 900ml out.
[2019-06-18 05:30] VITALS: BP 121/68; PULSE 67; RESP 20; O2SAT 97
== END 2019-06-18 05:28 | disposition home or self-care (01) ==
PROVIDERS: Emergency Provider Emergency Medicine; PCP Family Medicine
DX: R33.9 Retention of urine, unspecified (principal); R31.9 Hematuria, unspecified
CPT/HCPCS: 51701; 51798; 81001; 87077; 87086; 87186; 99284